=== PATIENT | female | born 1985 | race Hispanic/Latino ===

== ENCOUNTER 2019-11-18 13:00 | Outpatient (CLI) | payer OTHER ==
[2019-11-18] MEDS ORDERED: Iopamidol 370 76% 100 ML VIAL ONE (13:37)
--- NOTE | 2019-11-18 13:48 | CT ---
CT ABDOMEN AND PELVIS WITH IV CONTRAST 11/18/2019 CLINICAL INFORMATION: Right lower quadrant abdominal pain for several days. COMPARISON: None. Technique: Multiple contiguous axial CT images are obtained through the abdomen and pelvis with IV contrast. Cor onal reformatted images are provided. FINDINGS: Lower Chest: Lung bases are clear. Vessels: Abdominal aorta is normal in caliber. Abdomen: Portal vein:Patent Gallbladder: Within normal limits for CT imaging. Liver: within normal limits. Spleen: within normal limits. Pancreas: within normal limits. Adrenals: within normal limits. Kidneys: within normal limits. Bowel: Normal caliber. Appendix: At the upper limits of normal in size measuring 6 to 7 mm, but no adjacent periappendiceal inflammatory changes are seen and there is no cecal apical thickening. Peritoneum: No ascites or free air; no fluid collection. Mesentery and Retroperitoneum: No enlarged mesenteric or retroperitoneal lymph nodes. Abdominal Wall: within normal limits. Pelvis: Reproductive Organs: A 1.4 cm hypodense left adnexal lesion is seen with slightly irregular margins a nd peripheral rim of enhancement. This probably represents an involuting cyst or follicle involving the left ovary. Small subcentimeter low-density focus is seen in the region of the cervix probably du e to small ovarian cyst. Bladder: within normal limits. Bones: No suspicious lytic or sclerotic osseous lesions. IMPRESSION: No acute findings in the abdomen or pelvis.
== END 2019-11-18 13:01 | disposition home or self-care (01) ==
LOC: MADCT 13:00
PROVIDERS: ATTEND Physician Assistant
DX: R10.31 Right lower quadrant pain (principal)
CPT/HCPCS: 74177; Q9967